=== PATIENT | male | born 1950 | race Caucasian/White ===

== ENCOUNTER 2022-03-31 02:28 | Observation (INO) ==
[2022-03-31] MEDS ORDERED: NITROGLYCERIN 2% OINT 1 INCH/GM PACK TOP STA (02:43)
[2022-03-31 02:53] LABS: Basophils # 0.1 10*3/uL (0.0-0.2); Basophils % 0.8 % (0.0-0.8); Eosinophils # 0.3 10*3/uL (0.0-0.87); Eosinophils % 2.4 % (0.00-10.9); Hematocrit 42.8 VOL% (42.0-52.0); Hemoglobin 14.8 GM/DL (14.0-18.0); Immature Granulocytes % 0.3 %; Immature Granulocytes Absolute 0.03 #; Lymphocytes # 2.5 10*3/uL (1.4-4.0); Lymphocytes % 23.8 % (21.2-54.2); Mean Corpuscular HGB Conc 34.6 GM/DL (32-36); Mean Corpuscular Volume 89.4 FL (87-102); Mean Platelet Volume 9.2 FL (9.6-12.0); Monocytes % 9.8 % (1.7-12.7); Neutrophils % 62.9 % (38.7-73.9); Platelet Count 222 T/CUMM (130-400); Red Blood Count 4.79 MC/CUMM (3.8-5.5); Red Cell Distribution Width 12.4 % (9.3-17.3); White Blood Count 10.6 T/CUMM (4-12)
[2022-03-31 03:08] LABS: INR 0.9; PT Patient Result 10.3 SECS (10.1-12.1)
[2022-03-31 03:29] LABS: Albumin 3.7 G/DL (3.4-5.0); Bilirubin,Total 0.8 MG/DL (0.20-1.00); Calcium 9.9 MG/DL (8.5-10.1); Osmolality,Calculated 282.1 MOS/KG (273-304); Potassium 4.2 MMOL/L (3.5-5.1); Total Protein 7.6 G/DL (6.4-8.2)
[2022-03-31] MEDS ORDERED: ONDANSETRON 4 MG/2 ML VIAL IV ONE (03:53)
[2022-03-31] MEDS ORDERED: MORPHINE 2 MG/1 ML SYRINGE IV STA (03:53)
[2022-03-31] MEDS ORDERED: ACETAMINOPHEN 325 MG TABLET PO PRN (04:46)
[2022-03-31] MEDS ORDERED: DEXTROSE 10% 250 ML BAG IV PRN (04:46)
[2022-03-31] MEDS ORDERED: GLUCAGON 1 MG VIAL IM PRN (04:46)
[2022-03-31] MEDS ORDERED: ONDANSETRON 4 MG/2 ML VIAL IV PRN (04:46)
[2022-03-31] MEDS ORDERED: hydrALAZINE 20 MG/1 ML VIAL IV PRN (04:46)
[2022-03-31] MEDS ORDERED: MORPHINE 2 MG/1 ML SYRINGE IV PRN (04:46)
[2022-03-31] MEDS ORDERED: MAGNESIUM SULF RIDER 4 GM/100 ML PREMIX IV ONE (04:46)
[2022-03-31] MEDS: INSULIN LISPRO 100 UNIT/ML SUBCUT SCH ×2 (08:43→11:30)
[2022-03-31] MEDS ORDERED: OLMESARTAN 20 MG TABLET PO SCH (09:00)
[2022-03-31] MEDS ORDERED: PANTOPRAZOLE 40 MG TABLET PO SCH (09:00)
[2022-03-31 11:12] VITALS: BP 133/80
[2022-03-31] MEDS ORDERED: ATORVASTATIN 80 MG TABLET PO SCH (21:00)
[2022-03-31] MEDS ORDERED: ENOXAPARIN 40 MG/0.4 ML SYRINGE SUBCUT SCH (21:00)
[2022-04-01] MEDS ORDERED: ASPIRIN EC 81 MG TABLET PO SCH (09:00)
== END 2022-03-31 16:16 | disposition home or self-care (01) ==
LOC: N.ED 02:28 → N.EDINP 02:28 → N.2W 06:45
PROVIDERS: ADMIT Internal Medicine; ATTEND Internal Medicine